=== PATIENT | female | born 1965 | race Caucasian/White ===

== ENCOUNTER 2023-12-03 11:29 | Day surgery (SDC) | payer MEDICARE, MEDICAID, SELFPAY ==
[2023-11-24 10:18] VITALS: BMI 20.3
[2023-11-25 09:31] VITALS: BMI 20.6
[2023-12-03 11:48] VITALS: BP 139/76; PULSE 76; RESP 15; TEMP 37; O2SAT 100
[2023-12-03] MEDS: LACTATED RINGERS 1,000 ML 150 ML IV CONT (11:50)
--- NOTE | 2023-12-03 12:17 | WPDHPUPDATE1 ---
History and Physical Update Update Date/Time: 12/03/23 12:17 Patient presents today for EGD because of gastric pain. She has a distant history of peptic ulcer disease in the past. Additionally is a HIDA scan performed elsewhere 1 point recently was abnormal suggesting gallbladder dysfunction. This is not available for review at this time. History and Physical has been reviewed, including an updated exam of the patient. There are NO changes in the patient's condition. Risks, benefits, and alternatives have been discussed and questions answered. Patient agrees to proceed with procedure.
--- NOTE | 2023-12-03 12:55 | WPDANESEPPF ---
Anes - Initial Pre Proc Eval Procedure: Operation Date: 12/03/23 13:30 Proposed Procedures p Esophagogastroduodenoscopy - Donavan Durant MD Date/Time: 12/03/23 12:55 Surgeon: Donavan Durant MD Pre Op Diagnosis: Epigastric Pain Patient Data Age: 58 Gender: F Height: 1.59 m Weight: 49.6 kg Last Vital Signs Temp 37.0 C 12/03/23 11:48 Pulse 76 12/03/23 11:48 Resp 15 12/03/23 11:48 BP 139/76 12/03/23 11:48 Pulse Ox 100 12/03/23 11:48 O2 Del Method Room Air 12/03/23 11:48 Allergies Allergy/AdvReac Type Severity Reaction Status Date / Time No Known Allergies Allergy Verified 12/03/23 11:47 Home Medications Medication Instructions Recorded Confirmed Type albuterol sulfate 90 mcg/actuation 1 inh inhalation Q4H 11/17/23 12/03/23 History aerosol inhaler aspirin 81 mg tablet,delayed 81 mg PO DAILY 11/17/23 12/03/23 History release (Adult Aspirin Regimen) carvedilol 6.25 mg tablet 6.25 mg PO Q12H 11/17/23 12/03/23 History fluticasone furoate 100 1 inh inhalation DAILY 11/17/23 12/03/23 History mcg-vilanterol 25 mcg/dose inhalation powder (Breo Ellipta) loratadine 10 mg tablet (Claritin) 10 mg PO DAILY 11/17/23 12/03/23 History lorazepam 0.5 mg tablet 0.5 mg PO QID PRN Anxiety 11/17/23 12/03/23 History pravastatin 40 mg tablet 40 mg PO DAILY 11/17/23 12/03/23 History sucralfate 1 gram tablet (Carafate) 1 g PO TID #90 tabs 11/17/23 12/03/23 Rx omeprazole 20 mg capsule,delayed 20 mg PO BID #60 caps 11/18/23 12/03/23 Rx release Adult Probiotic 1 tab-cap PO DAILY 11/25/23 12/03/23 History Dulcolax (bisacodyl) 2 tab-cap PO HS 11/25/23 12/03/23 History Tylenol Arthritis 1 tab-cap PO TID PRN Pain 11/25/23 12/03/23 History Patient hx anesthesia problems: none Family hx anesthesia problems: none Results Review: All pre-operative results and documents have been reviewed as part of the pre-operative evaluation. [facility] Past Medical History Medical History Allergies Anxiety Arthritis Asthma CHF (congestive heart failure) COPD (chronic obstructive pulmonary disease) GERD (gastroesophageal reflux disease) H/O blood clots Hypertension IBS (irritable bowel syndrome) Ulcer Surgical History Surgical History H/O discectomy H/O laminectomy Family History Family History Mother Depression Hypertension Thyroid disease Father Heart disease Hypertension Social History Social History Smoking packs per day: 1 Smoking cigarettes per day: 20.0 Years smoked: 40 Smoking pack-years: 40.00 Smoking status: Current every day smoker Tobacco type: cigarettes and e-cigarettes/vaping Second hand tobacco smoke exposure: Yes Alcohol intake: current Drinks per week: 2 Substance use: never Substance use type: does not use Do You Feel Safe in your Home?: Yes Lack of Transportation: No Lack of Food: Never True Current Housing: I Have Housing Concerned About Future Housing: No Difficulty Paying Gas/Electric Bills: No Difficulty Paying for Meds: No Currently Unemployed: No Education: High School Diploma/GED Living arrangements: alone Occupation/Education: other Gender identity (if verbalized by the patient): Female Spiritual care concerns: No Anes - Eval Final PreProcedure Day of Procedure 12/03/23 12:55 Patient weight: normal Heart: regular rate and rhythm Lungs: decreased breath sounds Airway: Mallampati scale class II Neurological: alert and oriented Last oral intake: >/= 8 hours ASA classification: III Emergent: no Anesthetic plan: proceed Anesthesia type and monitoring: general GIVS and standard monitoring Results Review: All pre-operative results and documents have been reviewed as part of
[2023-12-03 13:10] VITALS: BP 118/64; PULSE 82; RESP 16; O2SAT 98
--- NOTE | 2023-12-03 13:15 | WPDANESPN ---
Anes - Prog Note Post-Op Date/Time: 12/03/23 13:15 Cardiovascular status: normal Respiratory status: normal Airway patency: baseline Mental status: baseline Post-Op hydration status: normal Vital Signs: Last Vital Signs Temp 37.0 C 12/03/23 11:48 Pulse 82 12/03/23 13:10 Resp 16 12/03/23 13:10 BP 118/64 12/03/23 13:10 Pulse Ox 98 12/03/23 13:10 O2 Del Method Room Air 12/03/23 13:10 Pain Score (VAS): 0 I/O: Intake & Output 12/02/23 12/03/23 12/03/23 23:59 07:59 15:59 Intake Total 200 Balance 200 Patient Feedback: Patient satisfied with anesthetic care.
[2023-12-03 13:20] VITALS: BP 115/61; PULSE 83; RESP 16; O2SAT 99
[2023-12-03 13:30] VITALS: BP 145/78; PULSE 72; RESP 16; O2SAT 100
== END 2023-12-03 13:38 | disposition home or self-care (01) ==
PROVIDERS: PCP Physician Assistant; Visit Provider Internal Medicine Gastroenterology
PROC: 0DJ08ZZ Inspection of Upper Intestinal Tract, Via Natural or Artificial Opening Endoscopic (ICD-10-PCS; CPT 43235; principal; 2023-12-03 13:30)
DX: R10.13 Epigastric pain (principal)
CPT/HCPCS: 43239